=== PATIENT | female | born 1940 | race African-American/Black ===

== ENCOUNTER → 2018-05-05 | Outpatient (CLI) | payer MEDICARE | END | disposition home or self-care (01) | LOC: RAD 11:37 | PROVIDERS: ATTEND Urology | DX: R10.9 Unspecified abdominal pain (principal); N20.0 Calculus of kidney | CPT/HCPCS: 74018; 74176 ==

== ENCOUNTER → 2018-05-26 | Outpatient (CLI) | payer MEDICARE | END | disposition home or self-care (01) | LOC: RAD 09:35 | PROVIDERS: ATTEND Urology | DX: N20.0 Calculus of kidney (principal); N20.1 Calculus of ureter | CPT/HCPCS: 74018 ==

== ENCOUNTER 2020-12-26 13:03 | Emergency (ER) | payer MEDICARE, OTHER ==
[~2020-12-26] VITALS: Ht 165.1 cm; Wt 75.0 kg
[2020-12-26] MEDS ORDERED: ATOR10TA PO (13:14)
[2020-12-26] MEDS ORDERED: AMLO-352 PO (13:14)
[2020-12-26] MEDS ORDERED: METH5TAB68 PO (13:14)
[2020-12-26 14:17] LABS: BASOPHILS % 0.8 % (0.0-2.0); EOSINOPHILS % 1.4 % (0.0-5.0); HEMATOCRIT. 39.2 % (36.0-48.0); HEMOGLOBIN. 12.8 g/dL (12.0-16.0); LYMPHOCYTES % 19.2 % (20.0-50.0); MEAN CORPUSCULAR HEMOGLOBIN 28.5 pg (28.0-32.0); MEAN CORPUSCULAR VOLUME 87.6 fL (81.0-99.0); MEAN PLATELET VOLUME 8.3 fl (7.4-10.4); NEUTROPHILS % 71.6 % (40.0-76.0); PLATELET 241 x1000/uL (130-400); RED BLOOD CELL COUNT 4.48 mill/uL (4.2-5.4); RED CELL DISTRIBUTION WIDTH 17.2 % (11.6-14.6)
[2020-12-26 14:26] LABS: CHLORIDE 109 mEq/L (98-107)
[2020-12-26 14:38] LABS: B-HCG QUANTITATIVE 5 mIU/mL (<3)
[2020-12-26] MEDS ORDERED: KETOROLAC 15MG/ML VIAL IV ONE (15:45)
[2020-12-26] MEDS ORDERED: SODIUM CHLORIDE 0.9% 1,000 ML IV ONE (16:00)
[2020-12-26 17:30] LABS: CLARITY URINE CLEAR (CLEAR); COLOR URINE YELLOW (YELLOW); KETONES URINE NEGATIVE (NEGATIVE); LEUKOCYTE ESTERASE URINE TRACE (NEGATIVE); NITRITE URINE NEGATIVE (NEGATIVE); OCCULT BLOOD URINE 2+ (NEGATIVE); PH URINE 7.5 (4.5-8.0); PROTEIN URINE NEGATIVE (NEGATIVE); SPECIFIC GRAVITY URINE 1.011 (1.005-1.030); UROBILINOGEN URINE 0.2 E.U./dL (0.2-1.0)
[2020-12-26 18:35] VITALS: BP 142/64
== END 2020-12-26 18:37 | disposition home or self-care (01) ==
LOC: ER 13:03
DX: N20.0 Calculus of kidney (principal); E78.00 Pure hypercholesterolemia, unspecified; I10 Essential (primary) hypertension; K21.9 Gastro-esophageal reflux disease without esophagitis; Z88.0 Allergy status to penicillin; Z88.6 Allergy status to analgesic agent; Z88.5 Allergy status to narcotic agent; Z90.710 Acquired absence of both cervix and uterus; Z98.890 Other specified postprocedural states; Z86.39 Personal history of other endocrine, nutritional and metabolic disease
CPT/HCPCS: 36415; 74176; 76830; 76856; 80053; 81003; 81025; 84702; 85025; 86850; 86900; 86901; 93005; 96361; 96374; 99285; J1885; J7030